=== PATIENT | male | born 1980 | race Asian ===

== ENCOUNTER 2023-04-17 13:55 | Emergency (ER) | payer BC ==
[~2023-04-17] VITALS: Ht 167.6 cm; Wt 74.0 kg
[2023-04-17 14:08] VITALS: TEMP 98.5; O2SAT 99
[2023-04-17 14:45] LABS: CLARITY URINE CLEAR (CLEAR); COLOR URINE YELLOW (YELLOW); GLUCOSE URINE NEGATIVE (NEGATIVE); KETONES URINE NEGATIVE (NEGATIVE); LEUKOCYTE ESTERASE URINE NEGATIVE (NEGATIVE); NITRITE URINE NEGATIVE (NEGATIVE); OCCULT BLOOD URINE 3+ (NEGATIVE); PROTEIN URINE NEGATIVE (NEGATIVE); SPECIFIC GRAVITY URINE 1.015 (1.005-1.030); UROBILINOGEN URINE 0.2 E.U./dL (0.2-1.0)
[2023-04-17 14:47] LABS: WBC URINE 0-2 /hpf (0-2); YEAST URINE NONE SEEN
[2023-04-17 15:21] LABS: HEMATOCRIT 42.6 % (42.0-52.0); HEMOGLOBIN 13.5 g/dL (14.0-18.0); MEAN CORPUSCULAR HEMOGLOBIN 22.2 pg (28.0-32.0); MEAN CORPUSCULAR HGB CONC 31.6 g/dL (31.0-37.0); MEAN CORPUSCULAR VOLUME 70.2 fL (80.0-94.0); PLATELET 279 x1000/uL (130-400); RED BLOOD CELL COUNT 6.07 mill/uL (4.7-6.1); RED CELL DISTRIBUTION WIDTH 14.7 % (11.6-14.6); WHITE BLOOD COUNT 7.6 x1000/uL (4.5-11.0)
[2023-04-17 15:34] LABS: BACTERIA URINE 1+; SQUAMOUS EPITHELIAL CELL URINE RARE /lpf (RARE/1+)
[2023-04-17 15:35] LABS: RBC URINE 25-50 /hpf (0-2)
[2023-04-17 15:43] LABS: CHLORIDE 110 mEq/L (98-107); INDEX HEMOLYSI 1 (1-3); INDEX ICTERIC 1 (1-4); INDEX LIPEMIC 1 (1-3); POTASSIUM 4.3 mEq/L (3.5-5.1); SODIUM 141 mEq/L (136-145)
[2023-04-17 15:52] LABS: ALANINE AMINOTRANSFERASE 53 IU/L (13-61); ASPARTATE AMINOTRANSFERASE 21 IU/L (15-37); BILIRUBIN TOTAL 0.5 mg/dL (0.1-1.0); CALCIUM 8.6 mg/dL (8.5-10.1); CARBON DIOXIDE 26 mEq/L (21-32); GLUCOSE 89 mg/dL (70-105); PROTEIN TOTAL 7.3 g/dL (6.0-8.3); TROPONIN I HIGH SENSITIVITY 4 ng/L (<78); UREA NITROGEN BLOOD 13 mg/dL (7-21)
[2023-04-17] MEDS ORDERED: KETOROLAC 30MG/ML VIAL IM ONE (16:45)
[2023-04-17 17:07] VITALS: BP 145/99; PULSE 82; RESP 20
[2023-04-17] MEDS ORDERED: IBUP-2029 MT (17:51)
[2023-04-17] MEDS ORDERED: TOPUD MT (17:51)
== END 2023-04-17 18:04 | disposition home or self-care (01) ==
LOC: ER 13:55
DX: N20.0 Calculus of kidney (principal)
CPT/HCPCS: 80053; 81003; 83690; 85027; 84484; 36415; 74176; 96372; 99285; J1885; Z7610